=== PATIENT | female | born 1985 | race Two or more races ===

== ENCOUNTER 2020-10-04 10:58 | Observation (INO) | payer MEDICAID ==
[2020-10-04] MEDS ORDERED: GLYB2.5T8 PO (12:54)
[2020-10-04] MEDS ORDERED: PREN1TAB71 OR (12:54)
== END 2020-10-04 13:02 | disposition home or self-care (01) ==
LOC: LDRP 11:46
PROVIDERS: ADMIT Specialist; ATTEND Specialist
DX: O24.415 Gestational diabetes mellitus in pregnancy, controlled by oral hypoglycemic drugs (principal); O40.2XX0 Polyhydramnios, second trimester, not applicable or unspecified; Z3A.26 26 weeks gestation of pregnancy
CPT/HCPCS: 59025; 76818; 81002; 82948; 82962; G0378

== ENCOUNTER 2020-10-07 19:02 | Observation (INO) | payer MEDICAID ==
[~2020-10-07] VITALS: Ht 157.5 cm; Wt 80.3 kg
[~2020-10-07 19:02] MED LIST: GLYB2.5T8 PO; PREN1TAB71 OR
== END 2020-10-07 21:14 | disposition home or self-care (01) ==
LOC: LDRP 19:02
PROVIDERS: ADMIT Obstetrics & Gynecology; ATTEND Obstetrics & Gynecology
DX: O24.419 Gestational diabetes mellitus in pregnancy, unspecified control (principal); O40.2XX0 Polyhydramnios, second trimester, not applicable or unspecified; Z3A.26 26 weeks gestation of pregnancy
CPT/HCPCS: 59025; 76818; 81002; 82948; 82962; G0378

== ENCOUNTER 2020-10-10 08:25 | Observation (INO) | payer MEDICAID | END 2020-10-10 09:45 | disposition home or self-care (01) | LOC: LDRP 08:25 | PROVIDERS: ADMIT Specialist; ATTEND Specialist | DX: O24.419 Gestational diabetes mellitus in pregnancy, unspecified control (principal); O40.2XX0 Polyhydramnios, second trimester, not applicable or unspecified; O99.282 Endocrine, nutritional and metabolic diseases complicating pregnancy, second trimester; E87.6 Hypokalemia; Z3A.27 27 weeks gestation of pregnancy | CPT/HCPCS: 59025; 76818; 81002; 82948; 94760; G0378 ==

== ENCOUNTER 2020-10-13 10:49 | Observation (INO) | payer MEDICAID ==
[2020-12-05] MEDS ORDERED: NIF10C PO (12:14)
== END 2020-10-13 14:21 | disposition home or self-care (01) ==
LOC: LDRP 12:06
PROVIDERS: ADMIT Obstetrics & Gynecology; ATTEND Obstetrics & Gynecology
DX: O24.415 Gestational diabetes mellitus in pregnancy, controlled by oral hypoglycemic drugs (principal); O40.2XX0 Polyhydramnios, second trimester, not applicable or unspecified; Z79.84 Long term (current) use of oral hypoglycemic drugs; Z3A.27 27 weeks gestation of pregnancy
CPT/HCPCS: 59025; 76818; 81002; 82962; G0378

== ENCOUNTER 2020-10-17 11:11 | Observation (INO) | payer MEDICAID | END 2020-10-17 13:08 | disposition home or self-care (01) | LOC: LDRP 11:11 | PROVIDERS: ADMIT Obstetrics & Gynecology; ATTEND Obstetrics & Gynecology | DX: O24.419 Gestational diabetes mellitus in pregnancy, unspecified control (principal); O40.3XX0 Polyhydramnios, third trimester, not applicable or unspecified; Z3A.28 28 weeks gestation of pregnancy | CPT/HCPCS: 59025; 76818; 81002; 82948; 82962; 94760; G0378 ==

== ENCOUNTER 2020-10-22 13:15 | Inpatient (IN) | payer MEDICAID | END 2020-10-22 15:20 | disposition home or self-care (01) | DRG 566 | LOC: LDRP 13:15 | PROVIDERS: ADMIT Obstetrics & Gynecology; ATTEND Obstetrics & Gynecology | DX: O24.419 Gestational diabetes mellitus in pregnancy, unspecified control (principal); Z3A.28 28 weeks gestation of pregnancy | CPT/HCPCS: 59025; 76818; 81002; 82948; 82962; G0378 ==

== ENCOUNTER 2020-10-24 08:50 | Observation (INO) | payer MEDICAID | END 2020-10-24 09:56 | disposition home or self-care (01) | LOC: LDRP 08:50 | PROVIDERS: ADMIT Specialist; ATTEND Specialist | DX: O24.415 Gestational diabetes mellitus in pregnancy, controlled by oral hypoglycemic drugs (principal); O40.3XX0 Polyhydramnios, third trimester, not applicable or unspecified; O09.523 Supervision of elderly multigravida, third trimester; Z3A.29 29 weeks gestation of pregnancy | CPT/HCPCS: 59025; 76818; 81002; 82948; G0378 ==

== ENCOUNTER 2020-10-27 09:05 | Observation (INO) | payer MEDICAID | END 2020-10-27 11:52 | disposition home or self-care (01) | LOC: LDRP 09:05 | PROVIDERS: ADMIT Specialist; ATTEND Specialist | DX: O24.419 Gestational diabetes mellitus in pregnancy, unspecified control (principal); O09.523 Supervision of elderly multigravida, third trimester; Z3A.29 29 weeks gestation of pregnancy | CPT/HCPCS: 59025; 76818; 81002; 82962; G0378 ==

== ENCOUNTER 2020-10-31 09:00 | Observation (INO) | payer MEDICAID ==
[2020-10-31] MEDS ORDERED: METF-370 PO (10:31)
== END 2020-10-31 10:33 | disposition home or self-care (01) ==
LOC: LDRP 09:00
PROVIDERS: ADMIT Specialist; ATTEND Specialist
DX: O24.419 Gestational diabetes mellitus in pregnancy, unspecified control (principal); O40.3XX0 Polyhydramnios, third trimester, not applicable or unspecified; Z3A.30 30 weeks gestation of pregnancy
CPT/HCPCS: 59025; 76818; 81002; 82962; G0378

== ENCOUNTER 2020-11-03 08:40 | Observation (INO) | payer MEDICAID ==
[~2020-11-03] VITALS: Ht 157.5 cm; Wt 80.7 kg
[~2020-11-03 08:40] MED LIST changes: +METF-370 PO
== END 2020-11-03 10:14 | disposition home or self-care (01) ==
LOC: LDRP 08:40
PROVIDERS: ADMIT Obstetrics & Gynecology; ATTEND Obstetrics & Gynecology
DX: O24.419 Gestational diabetes mellitus in pregnancy, unspecified control (principal); O40.3XX0 Polyhydramnios, third trimester, not applicable or unspecified; Z3A.30 30 weeks gestation of pregnancy
CPT/HCPCS: 59025; 76818; 81002; 82948; G0378

== ENCOUNTER 2020-11-07 13:05 | Observation (INO) | payer MEDICAID ==
[~2020-11-07] VITALS: Ht 157.5 cm; Wt 80.7 kg
[2020-11-07] MEDS ORDERED: SODIUM CHLORIDE 0.9% 1,000 ML IV ONE (14:45)
[2020-11-07] MEDS ORDERED: cefTRIAXone 1GM/50ML D5W 50 ML IV ONE (14:45)
== END 2020-11-07 15:43 | disposition home or self-care (01) ==
LOC: LDRP 13:05
PROVIDERS: ADMIT Specialist; ATTEND Specialist
DX: O40.3XX0 Polyhydramnios, third trimester, not applicable or unspecified (principal); O24.419 Gestational diabetes mellitus in pregnancy, unspecified control; Z3A.31 31 weeks gestation of pregnancy
CPT/HCPCS: 59025; 76818; 81002; 82948; 82962; 87086; 96365; G0378; J0696; J7050

== ENCOUNTER 2020-11-10 08:55 | Observation (INO) | payer MEDICAID | END 2020-11-10 11:00 | disposition home or self-care (01) | LOC: LDRP 08:55 | PROVIDERS: ADMIT Specialist; ATTEND Specialist | DX: O24.419 Gestational diabetes mellitus in pregnancy, unspecified control (principal); Z3A.31 31 weeks gestation of pregnancy | CPT/HCPCS: 59025; 76818; 81002; 82962; G0378 ==

== ENCOUNTER 2020-11-14 08:56 | Observation (INO) | payer MEDICAID | END 2020-11-14 10:40 | disposition home or self-care (01) | LOC: LDRP 08:56 | PROVIDERS: ADMIT Obstetrics & Gynecology; ATTEND Obstetrics & Gynecology | DX: O24.419 Gestational diabetes mellitus in pregnancy, unspecified control (principal); O40.3XX0 Polyhydramnios, third trimester, not applicable or unspecified; Z3A.32 32 weeks gestation of pregnancy | CPT/HCPCS: 59025; 76818; 81002; 82948; 82962; G0378 ==

== ENCOUNTER 2020-11-17 09:11 | Observation (INO) | payer MEDICAID ==
[2020-11-17] MEDS ORDERED: GLYB5TAB8 PO (09:27)
== END 2020-11-17 10:15 | disposition home or self-care (01) ==
LOC: LDRP 09:11
PROVIDERS: ADMIT Obstetrics & Gynecology; ATTEND Obstetrics & Gynecology
DX: O24.419 Gestational diabetes mellitus in pregnancy, unspecified control (principal); O40.3XX0 Polyhydramnios, third trimester, not applicable or unspecified; Z3A.32 32 weeks gestation of pregnancy
CPT/HCPCS: 59025; 76818; 81002; 82948; 82962; G0378

== ENCOUNTER 2020-11-21 09:00 | Observation (INO) | payer MEDICAID ==
[~2020-11-21 09:00] MED LIST changes: +GLYB5TAB8 PO
== END 2020-11-21 10:08 | disposition home or self-care (01) ==
LOC: LDRP 09:00
PROVIDERS: ADMIT Obstetrics & Gynecology; ATTEND Obstetrics & Gynecology
DX: O24.415 Gestational diabetes mellitus in pregnancy, controlled by oral hypoglycemic drugs (principal); O40.3XX0 Polyhydramnios, third trimester, not applicable or unspecified; O09.523 Supervision of elderly multigravida, third trimester; Z3A.33 33 weeks gestation of pregnancy
CPT/HCPCS: 59025; 76818; 81002; 82948; 82962; G0378

== ENCOUNTER 2020-11-24 09:04 | Observation (INO) | payer MEDICAID ==
[~2020-11-24] VITALS: Ht 157.5 cm; Wt 82.1 kg
== END 2020-11-24 11:02 | disposition home or self-care (01) ==
LOC: LDRP 09:04
PROVIDERS: ADMIT Obstetrics & Gynecology; ATTEND Obstetrics & Gynecology
DX: O40.3XX0 Polyhydramnios, third trimester, not applicable or unspecified (principal); O24.419 Gestational diabetes mellitus in pregnancy, unspecified control; O09.523 Supervision of elderly multigravida, third trimester; O62.9 Abnormality of forces of labor, unspecified; Z3A.32 32 weeks gestation of pregnancy
CPT/HCPCS: 59025; 76818; 81002; 82948; 82962; 94760; G0378

== ENCOUNTER 2020-11-28 09:29 | Observation (INO) | payer MEDICAID | END 2020-11-28 11:02 | disposition home or self-care (01) | LOC: LDRP 09:29 | PROVIDERS: ADMIT Obstetrics & Gynecology; ATTEND Obstetrics & Gynecology | DX: O24.419 Gestational diabetes mellitus in pregnancy, unspecified control (principal); O62.9 Abnormality of forces of labor, unspecified; Z3A.34 34 weeks gestation of pregnancy | CPT/HCPCS: 59025; 76818; 81002; 82962; G0378 ==

== ENCOUNTER 2020-12-03 10:30 | Observation (INO) | payer MEDICAID | END 2020-12-03 12:30 | disposition home or self-care (01) | LOC: LDRP 10:30 | PROVIDERS: ADMIT Specialist; ATTEND Specialist | DX: O24.415 Gestational diabetes mellitus in pregnancy, controlled by oral hypoglycemic drugs (principal); Z3A.34 34 weeks gestation of pregnancy; Z79.84 Long term (current) use of oral hypoglycemic drugs | CPT/HCPCS: 59025; 76818; 81002; 82962; G0378 ==

== ENCOUNTER 2020-12-03 20:48 | Observation (INO) | payer MEDICAID ==
[2020-12-03] MEDS ORDERED: NIFEdipine 10 MG CAP PO ONE (21:45)
[2020-12-05] MEDS ORDERED: NIF10C PO ×2 (12:14)
== END 2020-12-04 00:19 | disposition home or self-care (01) ==
LOC: LDRP 20:48
PROVIDERS: ADMIT Specialist; ATTEND Specialist
DX: O60.03 Preterm labor without delivery, third trimester (principal); O24.415 Gestational diabetes mellitus in pregnancy, controlled by oral hypoglycemic drugs; Z79.84 Long term (current) use of oral hypoglycemic drugs; Z79.899 Other long term (current) drug therapy; Z3A.34 34 weeks gestation of pregnancy
CPT/HCPCS: 59025; 81002; 82948; 82962; G0378

== ENCOUNTER 2020-12-05 09:08 | Observation (INO) | payer MEDICAID ==
[~2020-12-05] VITALS: Ht 157.5 cm; Wt 81.6 kg
[2020-12-05] MEDS ORDERED: NIFEdipine 10 MG CAP PO ONE (11:15)
[2020-12-05] MEDS ORDERED: TERBUTALINE SULFATE 1 MG/ML 1ML VIAL SC SCH ×2 (11:15)
[2020-12-05] MEDS ORDERED: NIFEdipine 10 MG CAP ONE (11:21)
[2020-12-05] MEDS ORDERED: TERBUTALINE SULFATE 1 MG/ML 1ML VIAL SC ONE (11:22)
[2020-12-05] MEDS ORDERED: NIF10C PO ×2 (12:14)
== END 2020-12-05 12:23 | disposition home or self-care (01) ==
LOC: LDRP 09:08
PROVIDERS: ADMIT Obstetrics & Gynecology; ATTEND Obstetrics & Gynecology
DX: O24.419 Gestational diabetes mellitus in pregnancy, unspecified control (principal); O60.03 Preterm labor without delivery, third trimester; Z3A.35 35 weeks gestation of pregnancy
CPT/HCPCS: 59025; 76818; 81002; 82948; 82962; 96372; G0378; J3105

== ENCOUNTER 2020-12-08 10:05 | Observation (INO) | payer MEDICAID ==
[~2020-12-08 10:05] MED LIST changes: +NIF10C GT
== END 2020-12-08 12:00 | disposition home or self-care (01) ==
LOC: LDRP 10:05
PROVIDERS: ADMIT Obstetrics & Gynecology; ATTEND Obstetrics & Gynecology
DX: O40.3XX0 Polyhydramnios, third trimester, not applicable or unspecified (principal); O24.419 Gestational diabetes mellitus in pregnancy, unspecified control; Z3A.35 35 weeks gestation of pregnancy
CPT/HCPCS: 59025; 76818; 81002; 82948; 82962; 94762; G0378

== ENCOUNTER 2020-12-13 13:49 | Observation (INO) | payer MEDICAID | END 2020-12-13 14:29 | disposition home or self-care (01) | LOC: LDRP 13:49 | PROVIDERS: ADMIT Specialist; ATTEND Specialist | DX: O40.3XX0 Polyhydramnios, third trimester, not applicable or unspecified (principal); O24.419 Gestational diabetes mellitus in pregnancy, unspecified control; Z3A.35 35 weeks gestation of pregnancy | CPT/HCPCS: 59025; 76818; 81002; 82948; 94760; G0378 ==

== ENCOUNTER 2020-12-16 09:33 | Observation (INO) | payer MEDICAID ==
[~2020-12-16] VITALS: Ht 154.9 cm; Wt 84.8 kg
== END 2020-12-16 15:00 | disposition home or self-care (01) ==
LOC: LDRP 14:10
PROVIDERS: ADMIT Obstetrics & Gynecology; ATTEND Obstetrics & Gynecology
DX: O24.419 Gestational diabetes mellitus in pregnancy, unspecified control (principal); O40.3XX0 Polyhydramnios, third trimester, not applicable or unspecified; Z3A.36 36 weeks gestation of pregnancy
CPT/HCPCS: 59025; 76818; 81002; 82948; 82962; G0378

== ENCOUNTER 2020-12-20 13:05 | Observation (INO) | payer MEDICAID ==
[2020-12-20 16:40] LABS: Basophils # (auto) 0.1 10 ^3/uL (0-0.2); Basophils % (auto) 0.5 % (0.0-2.0); Eosinophils # (auto) 0.1 10 ^3/uL (0-0.8); Eosinophils % (auto) 0.6 % (0.0-7.0); Hematocrit 35.8 % (36.0-46.0); Hemoglobin 12.1 g/dL (12.2-16.2); Lymphocytes # (auto) 1.8 10 ^3/uL (0.4-5.4); Lymphocytes % (auto) 16.4 % (10.0-50.0); Mean Corpuscular Hemoglobin 29.5 pg (28.0-32.0); Mean Corpuscular Hgb Conc. 33.9 g/dL (32.0-36.0); Mean Corpuscular Volume 86.9 fL (80.0-100.0); Monocytes # (auto) 0.8 10 ^3/uL (0-1.3); Monocytes % (auto) 7.5 % (0.0-12.0); Neutrophils # (auto) 8.1 10 ^3/uL (1.6-8.6); Red Blood Cells 4.12 10^6/uL (4.0-5.20); Red Cell Distribution Width 14.5 % (11.8-14.3); White Blood Cell 10.8 10^3/uL (4.4-10.8)
[2020-12-20 16:42] LABS: Urine Bacteria FEW /hpf (None Seen); Urine Blood TRACE /uL (Negative); Urine Mucus FEW (None Seen); Urine Specific Gravity 1.033 (1.001-1.035); Urine WBC 24 /hpf (0 - 5)
[2020-12-20 16:55] LABS: Albumin 2.6 g/dL (3.4-5.0); Calcium 8.6 mg/dL (8.5-10.1); Potassium 4.2 mmol/L (3.5-5.1)
[2020-12-20 16:56] LABS: Protein, Urine 85.7 mg/dL (0.0-11.9)
[2020-12-20 16:58] LABS: Bilirubin, Total 0.1 mg/dL (0.2-1.0); Total Protein 6.9 g/dL (6.4-8.2); Uric Acid 3.8 mg/dL (2.6-6.0)
[2020-12-20 17:13] LABS: INR 0.87 (0.9-1.15); Partial Thromboplastin Time 25.8 sec (23.0-31.2)
== END 2020-12-20 17:57 | disposition home or self-care (01) ==
LOC: LDRP 13:05
PROVIDERS: ADMIT Obstetrics & Gynecology; ATTEND Obstetrics & Gynecology
DX: O24.419 Gestational diabetes mellitus in pregnancy, unspecified control (principal); O40.3XX0 Polyhydramnios, third trimester, not applicable or unspecified; Z3A.37 37 weeks gestation of pregnancy; Z79.899 Other long term (current) drug therapy
CPT/HCPCS: 36415; 59025; 76818; 80053; 81001; 81002; 82570; 82948; 82962; 84156; 84550; 85025; 85610; 85730; 94760; G0378

== ENCOUNTER 2020-12-22 19:56 | Observation (INO) | payer MEDICAID ==
[~2020-12-22] VITALS: Ht 157.5 cm; Wt 83.9 kg
[2020-12-22] MEDS ORDERED: ACCU-CHEK COMFORT CURVE STRIP VI ONE (20:00)
[2020-12-22] MEDS ORDERED: CEPH-322 PO (21:32)
== END 2020-12-22 21:38 | disposition home or self-care (01) ==
LOC: LDRP 19:56
PROVIDERS: ADMIT Obstetrics & Gynecology; ATTEND Obstetrics & Gynecology
DX: O24.419 Gestational diabetes mellitus in pregnancy, unspecified control (principal); O40.3XX0 Polyhydramnios, third trimester, not applicable or unspecified; Z3A.37 37 weeks gestation of pregnancy
CPT/HCPCS: 59025; 76818; 81002; 82948; 82962; G0378

== ENCOUNTER 2020-12-26 10:24 | Observation (INO) | payer MEDICAID ==
[~2020-12-26 10:24] MED LIST changes: +CEPH-322 PO; -NIF10C GT; +NIF10C PO
== END 2020-12-26 16:10 | disposition home or self-care (01) ==
LOC: LDRP 13:25
PROVIDERS: ADMIT Obstetrics & Gynecology; ATTEND Obstetrics & Gynecology
DX: O24.419 Gestational diabetes mellitus in pregnancy, unspecified control (principal); O40.3XX0 Polyhydramnios, third trimester, not applicable or unspecified; Z3A.38 38 weeks gestation of pregnancy
CPT/HCPCS: 59025; 76818; 81002; 82948; G0378

== ENCOUNTER 2020-12-28 12:26 | Observation (INO) | payer MEDICAID ==
[~2020-12-28] VITALS: Ht 157.5 cm; Wt 84.4 kg
[2020-12-28] MEDS ORDERED: NIFEdipine 10 MG CAP PO ONE (15:45)
== END 2020-12-28 15:55 | disposition home or self-care (01) ==
LOC: LDRP 14:40
PROVIDERS: ADMIT Specialist; ATTEND Specialist
DX: O24.419 Gestational diabetes mellitus in pregnancy, unspecified control (principal); O40.3XX0 Polyhydramnios, third trimester, not applicable or unspecified; Z3A.38 38 weeks gestation of pregnancy
CPT/HCPCS: 59025; 76818; 81002; 82948; 82962; 94760; G0378

== ENCOUNTER 2020-12-31 12:55 | Observation (INO) | payer MEDICAID | END 2020-12-31 15:50 | disposition home or self-care (01) | LOC: LDRP 12:55 | PROVIDERS: ADMIT Specialist; ATTEND Specialist | DX: O24.419 Gestational diabetes mellitus in pregnancy, unspecified control (principal); Z20.822 Contact with and (suspected) exposure to COVID-19; Z3A.38 38 weeks gestation of pregnancy; Z98.891 History of uterine scar from previous surgery | CPT/HCPCS: 59025; 76818; 81002; 82948; 82962; 94760; G0378; U0003 ==

== ENCOUNTER 2021-01-02 04:02 | Inpatient (IN) | payer MEDICAID ==
[2021-01-02] VITALS (14 sets, daily range): BP systolic 110–134; BP diastolic 53–87
[~2021-01-02] VITALS: Ht 157.5 cm; Wt 84.8 kg
[~2021-01-02 04:02] MED LIST changes: -CEPH-322 PO
[2021-01-02] MEDS ORDERED: LACTATED RINGER'S 1,000 ML IV ONE (04:15)
[2021-01-02] MEDS ORDERED: ceFAZolin 1GM/50ML 50 ML IV ONE (04:15)
[2021-01-02] MEDS ORDERED: LACTATED RINGER'S 1,000 ML IV SCH (04:15)
[2021-01-02 05:40] LABS: Basophils # (auto) 0.1 10 ^3/uL (0-0.2); Basophils % (auto) 0.6 % (0.0-2.0); Eosinophils # (auto) 0.1 10 ^3/uL (0-0.8); Eosinophils % (auto) 0.8 % (0.0-7.0); Hematocrit 34.2 % (36.0-46.0); Hemoglobin 11.7 g/dL (12.2-16.2); Lymphocytes # (auto) 2.4 10 ^3/uL (0.4-5.4); Mean Corpuscular Hemoglobin 29.9 pg (28.0-32.0); Mean Corpuscular Hgb Conc. 34.3 g/dL (32.0-36.0); Mean Corpuscular Volume 87.2 fL (80.0-100.0); Monocytes # (auto) 0.8 10 ^3/uL (0-1.3); Monocytes % (auto) 7.1 % (0.0-12.0); Neutrophils # (auto) 8.1 10 ^3/uL (1.6-8.6); Neutrophils % (auto) 70.5 % (37.0-80.0); Red Blood Cells 3.93 10^6/uL (4.0-5.20); Red Cell Distribution Width 15.1 % (11.8-14.3); White Blood Cell 11.5 10^3/uL (4.4-10.8)
[2021-01-02 05:54] LABS: Urine Bacteria NONE SEEN /hpf (None Seen); Urine Blood 1+ /uL (Negative); Urine Hyaline Cast FEW /lpf (0 - 2); Urine Specific Gravity 1.012 (1.001-1.035); Urine WBC 10 /hpf (0 - 5)
[2021-01-02 06:02] LABS: INR 0.87 (0.9-1.15); Partial Thromboplastin Time 26.8 sec (23.0-31.2)
[2021-01-02 06:21] LABS: Potassium 3.7 mmol/L (3.5-5.1)
[2021-01-02 06:21] LABS: Alcohol, Urine < 3.0 mg/dL (0-10); Amphetamine Screen, Urine NEGATIVE (NEGATIVE); Barbiturate Scree,Urine NEGATIVE (NEGATIVE); Benzodiazephine Screen, Urine NEGATIVE (NEGATIVE); Cannabinoid Screen, Urine NEGATIVE (NEGATIVE); Cocaine Screen, Urine NEGATIVE (NEGATIVE); Opiate Scree,Urine NEGATIVE (NEGATIVE); Phencyclidine Screen, Urine NEGATIVE (NEGATIVE)
[2021-01-02 06:27] LABS: Albumin 2.3 g/dL (3.4-5.0); BUN/Creatinine Ratio 28.6; Bilirubin, Total 0.1 mg/dL (0.2-1.0); Calcium 8.5 mg/dL (8.5-10.1); Total Protein 6.4 g/dL (6.4-8.2)
[2021-01-02] MEDS ORDERED: TETRACAINE 1% INJ 2 ML VIAL IJ ONE (07:01)
[2021-01-02] MEDS ORDERED: fentaNYL CITRATE 100 MCG/2 ML VL ONE ×2 (07:03→11:57)
[2021-01-02] MEDS ORDERED: MORPHINE SULF(PF) 0.5MG/ML 10ML VIAL ONE ×2 (07:03→11:57)
[2021-01-02] MEDS ORDERED: oxyTOCIN 10 UNIT/ML 10ML VIAL ONE (07:04)
[2021-01-02] MEDS ORDERED: PHENYLEPHRINE HCL 10 MG/ML VL ONE (07:04)
[2021-01-02] MEDS ORDERED: ONDANSETRON HCL 4 MG/2 ML VIAL ONE (07:04)
[2021-01-02] MEDS ORDERED: ePHEDrine SULFATE 50 MG/ML AMP ONE (07:04)
[2021-01-02] MEDS ORDERED: KETOROLAC TROMETH 30 MG/ML 1ML VIAL ONE (07:04)
[2021-01-02] MEDS ORDERED: GLYCOPYRROLATE 0.2 MG/ML 1ML VIAL ONE (07:04)
[2021-01-02] MEDS: D5W/LACTATED RINGERS 1,000 ML IV SCH ×2 (07:09→20:23)
[2021-01-02] MEDS ORDERED: DexAMETHasone SOD PHOS 10MG/1ML VIAL INJ IV PRN (13:45)
[2021-01-02] MEDS ORDERED: GUM (CHEWING) 1 GUM CHEW CHEW ONE (13:45)
[2021-01-02] MEDS: LACTATED RINGER'S 1,000 ML IV SCH ×2 (13:45→21:45)
[2021-01-02] MEDS ORDERED: KETOROLAC TROMETH 30 MG/ML 1ML VIAL IV PRN (13:45)
[2021-01-02] MEDS ORDERED: diphenhdrAMINE HCL 50 MG/1 ML VL IV PRN (13:45)
[2021-01-02] MEDS ORDERED: ONDANSETRON HCL 4 MG/2 ML VIAL IV PRN ×3 (13:45)
[2021-01-02] MEDS ORDERED: ACCU-CHEK COMFORT CURVE STRIP VI ONE (13:45)
[2021-01-02] MEDS ORDERED: NALOXONE HCL 0.4 MG/ML VIAL IV PRN (13:45)
[2021-01-02] MEDS ORDERED: HYDROmorphone HCL 2 MG/ML VL IV PRN (13:45)
[2021-01-02] MEDS ORDERED: miSOPROStol 100 mcg TAB SL PRN (14:30)
[2021-01-02] MEDS ORDERED: miSOPROStol 100 mcg TAB ONE (14:30)
[2021-01-02] MEDS ORDERED: miSOPROStol 100 mcg TAB PR PRN (14:30)
[2021-01-02] MEDS: KETOROLAC TROMETH 30 MG/ML 1ML VIAL IV PRN (17:36)
[2021-01-02] MEDS: ceFAZolin 1GM/50ML 50 ML IV SCH (20:12)
[2021-01-03] VITALS (16 sets, daily range): BP systolic 107–142; BP diastolic 36–77
[2021-01-03] MEDS: ceFAZolin 1GM/50ML 50 ML IV SCH ×2 (04:07→14:17)
[2021-01-03 06:06] LABS: RPR Non Reactive (Non Reactive)
[2021-01-03 06:27] LABS: Basophils # (auto) 0.1 10 ^3/uL (0-0.2); Basophils % (auto) 0.5 % (0.0-2.0); Eosinophils # (auto) 0 10 ^3/uL (0-0.8); Eosinophils % (auto) 0.3 % (0.0-7.0); Hematocrit 24.9 % (36.0-46.0); Hemoglobin 8.7 g/dL (12.2-16.2); Lymphocytes # (auto) 2.3 10 ^3/uL (0.4-5.4); Lymphocytes % (auto) 19.7 % (10.0-50.0); Mean Corpuscular Hemoglobin 30.1 pg (28.0-32.0); Mean Corpuscular Hgb Conc. 34.8 g/dL (32.0-36.0); Mean Corpuscular Volume 86.4 fL (80.0-100.0); Monocytes # (auto) 0.7 10 ^3/uL (0-1.3); Monocytes % (auto) 5.9 % (0.0-12.0); Neutrophils # (auto) 8.5 10 ^3/uL (1.6-8.6); Neutrophils % (auto) 73.6 % (37.0-80.0); Red Blood Cells 2.88 10^6/uL (4.0-5.20); Red Cell Distribution Width 14.4 % (11.8-14.3); White Blood Cell 11.5 10^3/uL (4.4-10.8)
[2021-01-03] MEDS: LACTATED RINGER'S 1,000 ML IV SCH ×2 (07:04→14:17)
[2021-01-03] MEDS: KETOROLAC TROMETH 30 MG/ML 1ML VIAL IV PRN (07:06)
[2021-01-03] MEDS ORDERED: SIMETHICONE 80 MG CHEWABLE TABLET PO PRN (12:45)
[2021-01-03] MEDS ORDERED: HYDROcodone-ACET 5/325MG TAB PO PRN (12:45)
[2021-01-03] MEDS: HYDROcodone-ACET 5/325MG TAB PO PRN ×2 (15:29→20:53)
[2021-01-03] MEDS: DOCUSATE SOD 100 MG CAP PO SCH (22:01)
[2021-01-03] MEDS: IBUPROFEN 800 MG TAB PO PRN (22:02)
[2021-01-04] MEDS: HYDROcodone-ACET 5/325MG TAB PO PRN ×4 (02:06→22:44)
[2021-01-04 03:00] VITALS: BP 135/71
[2021-01-04] MEDS ORDERED: GUM (CHEWING) 1 GUM CHEW CHEW ONE (04:30)
[2021-01-04] MEDS ORDERED: ePHEDrine SULFATE 50 MG/ML AMP IV PRN (04:30)
[2021-01-04] MEDS: IBUPROFEN 800 MG TAB PO PRN ×2 (05:42→15:39)
[2021-01-04] MEDS: LACTATED RINGER'S 1,000 ML IV SCH ×3 (05:45→21:45)
[2021-01-04 06:30] VITALS: BP 128/75
[2021-01-04 07:48] LABS: Basophils # (auto) 0 10 ^3/uL (0-0.2); Basophils % (auto) 0.4 % (0.0-2.0); Eosinophils # (auto) 0.1 10 ^3/uL (0-0.8); Hemoglobin 8.9 g/dL (12.2-16.2); Lymphocytes % (auto) 21.3 % (10.0-50.0); Mean Corpuscular Hgb Conc. 35.6 g/dL (32.0-36.0); Mean Corpuscular Volume 87.2 fL (80.0-100.0); Monocytes # (auto) 0.6 10 ^3/uL (0-1.3); Neutrophils # (auto) 6.7 10 ^3/uL (1.6-8.6); Neutrophils % (auto) 71.3 % (37.0-80.0); Red Blood Cells 2.86 10^6/uL (4.0-5.20); Red Cell Distribution Width 14.9 % (11.8-14.3); White Blood Cell 9.3 10^3/uL (4.4-10.8)
[2021-01-04] MEDS: DOCUSATE SOD 100 MG CAP PO SCH ×2 (10:28→21:34)
[2021-01-04 10:30] VITALS: BP 116/70
[2021-01-04 15:30] VITALS: BP 138/75
[2021-01-04 18:30] VITALS: BP 130/67
[2021-01-04 22:37] VITALS: BP 113/71
[2021-01-05 02:33] VITALS: BP 111/72
[2021-01-05] MEDS: HYDROcodone-ACET 5/325MG TAB PO PRN ×2 (02:41→06:55)
[2021-01-05 06:30] VITALS: BP 133/79
[2021-01-05] MEDS: DOCUSATE SOD 100 MG CAP PO SCH (10:10)
[2021-01-05] MEDS: IBUPROFEN 800 MG TAB PO PRN (10:10)
[2021-01-05 10:30] VITALS: BP 126/74
== END 2021-01-05 10:35 | disposition home or self-care (01) | DRG 540 ==
LOC: LDRP 04:02
PROVIDERS: ADMIT Specialist; ATTEND Specialist
PROC: 0UL70CZ Occlusion of Bilateral Fallopian Tubes with Extraluminal Device, Open Approach (ICD-10-PCS; 2021-01-02)
PROC: 10D00Z1 Extraction of Products of Conception, Low, Open Approach (ICD-10-PCS; principal; 2021-01-02 12:16)
DX: O24.429 Gestational diabetes mellitus in childbirth, unspecified control (principal); R71.0 Precipitous drop in hematocrit; O34.211 Maternal care for low transverse scar from previous cesarean delivery; Z37.0 Single live birth; Z30.2 Encounter for sterilization; Z3A.39 39 weeks gestation of pregnancy
CPT/HCPCS: 36415; 59025; 80053; 80307; 81001; 82948; 82962; 84550; 85025; 85610; 85730; 86592; 86850; 86900; 86901; 94760; 94762; 96360; 96361; 96366; 96374; G0378; J0690; J1885; J2405; J2590